=== PATIENT | male | born 1980 | race Caucasian/White ===

== ENCOUNTER 2021-07-10 14:05 | Emergency (ER) | payer MEDICAID ==
[~2021-07-10] VITALS: Ht 180.3 cm; Wt 83.9 kg
--- NOTE | 2021-07-10 14:15 | NUR ---
40 y/o male presents with abdominal pain, patient states he has been having diarrhea and bloody stools. he denies any history of hemorrhoids nor any histroy of gastric problems. abdominal pain for 1 month
[2021-07-10 15:10] LABS: CREATININE 0.9 mg/dL (0.6-1.3); POTASSIUM 4.2 mmol/L (3.5-5.1)
[2021-07-10 15:16] LABS: BILIRUBIN,DIRECT 0.1 mg/dL (0.0-0.2); BILIRUBIN,TOTAL 0.4 mg/dL (0.2-1.0); TOTAL PROTEIN, SERUM 7.9 g/dL (6.4-8.2)
[2021-07-10] MEDS ORDERED: SWABABLE VALVE TRANSFER SET EA MC ONE (15:17)
[2021-07-10] MEDS ORDERED: IV NORMAL SALINE 250 ML IV ONE (15:17)
[2021-07-10] MEDS ORDERED: IOHEXOL 300MG/ML 100 ML INFUS..BTL ONE (15:17)
[2021-07-10 15:25] LABS: HEMATOCRIT 40.8 % (36.7-47.1); MEAN CORPUSCULAR HEMOGLOBIN 32.9 uug (23.8-33.4); MEAN CORPUSCULAR VOLUME 93.5 fL (73.0-96.2); PLATELET COUNT (AUTO) 217 K/uL (152-348)
[2021-07-10 15:32] LABS: *BILIRUBIN,URIN NEGATIVE (NEGATIVE); *CLARITY,URINE CLEAR (CLEAR); *COLOR,URINE YELLOW (YELLOW); *KETONES,URINE TRACE (NEGATIVE); *UROBILINOGEN,URINE 0.2 E.U./dl (NORMAL); LEUKOCYTE ESTERASE ,URINE NEGATIVE (NEGATIVE); NITRITE, URINE NEGATIVE (NEGATIVE); UGLUCOSE NEGATIVE (NEGATIVE)
[2021-07-10 15:36] LABS: *BLOOD, URINE TRACE (NEGATIVE)
[2021-07-10 15:39] LABS: WBC,URINE NONE SEEN /HPF (0-3)
[2021-07-10] MEDS ORDERED: CIPR-262 PO (16:44)
[2021-07-10] MEDS ORDERED: METR500T PO (16:44)
--- NOTE | 2021-07-10 16:53 | NUR ---
Patient discharged to home in stable condition. Written and verbal after care instructions given. Patient verbalizes understanding of instructions. Stressed follow up or return to ER for worsening s/s.
[2021-07-10 16:54] VITALS: BP 122/95
== END 2021-07-10 16:57 | disposition home or self-care (01) ==
LOC: ER 14:05
DX: K52.9 Noninfective gastroenteritis and colitis, unspecified (principal); R10.32 Left lower quadrant pain; K92.1 Melena; Z88.0 Allergy status to penicillin
CPT/HCPCS: 36415; 74177; 80048; 80076; 81001; 83690; 84484; 85025; 85730; 93005; 99285; Q9967; A4663